=== PATIENT | male | born 1950 | race Caucasian/White ===

== ENCOUNTER → 2019-04-09 | Outpatient (CLI) | payer OTHER, SELFPAY ==
[2019-04-09 12:50] LABS: Anion Gap 2 (5-15); BUN 19 mg/dL (7-18); BUN/Creat Ratio 18.8 RATIO (10-20); Calcium,Total 9.4 mg/dL (8.5-10.1); Chloride 106 mmol/L (98-107); Cholesterol 136 mg/dL (200); Creatinine, Serum 1.01 mg/dL (0.70-1.30); EST Glomerular Filtration Rate 78 mL/min (>60); Est Glom Filt Rate - Afr Amer 95 mL/min (>60); Glucose 99 mg/dL (74-106); High Density Lipoprotein 64 mg/dL; Potassium 4.8 mmol/L (3.5-5.1); Sodium Level 140 mmol/L (136-145); Uric Acid 7.5 mg/dL (3.5-7.2)
[2019-04-09 13:19] LABS: Microalbumin,Random Urine 8.8 mg/L (NO RANGE EST.); Microalbumin:Creatinine Ratio 4.8 mg/g CRE (<30 mg/g CRE)
== END | disposition home or self-care (01) ==
LOC: MFPLAB 10:04
PROVIDERS: Family Provider Family Medicine; PCP Family Medicine; Referring Provider Family Medicine; Visit Provider Family Medicine
DX: I10 Essential (primary) hypertension (principal); M10.9 Gout, unspecified
CPT/HCPCS: 36415; 80048; 82043; 82465; 82570; 83718; 84550

== ENCOUNTER → 2024-02-04 | Outpatient (CLI) | payer MEDICARE, SELFPAY ==
[2024-02-04 12:19] LABS: Hematocrit 48.2 % (40-54); Hemoglobin 16.3 g/dL (13.0-16.5); Mean Corp Hgb Conc 33.8 g/dL (32-36); Mean Corpuscular Hgb 31.6 pg (27.0-32.0); Mean Corpuscular Volume 93.4 fL (80-94); POSITIVE COUNT YES; RBC Distribution Width CV 12.3 % (11.6-14.6); RBC Distribution Width SD 42.6 fl (35.1-43.9); Red Blood Count 5.16 M/mm3 (4.6-6.2); White Blood Count 6.6 K/mm3 (4.4-11.0)
[2024-02-04 12:46] LABS: ALB/GLOB Ratio 0.8 RATIO (0.9-2.4); AST(SGOT) 23 U/L (15-37); Alanine Aminotransfer ALT/SGPT 28 U/L (16-61); Albumin, Serum 3.6 g/dL (3.2-5.0); Alkaline Phosphatase 83 U/L (45-117); Anion Gap 7 (5-15); BUN 14 mg/dL (7-18); BUN/Creat Ratio 15.9 RATIO (10-20); Calcium,Total 9.2 mg/dL (8.5-10.1); Chloride 108 mmol/L (98-107); Creatinine, Serum 0.88 mg/dL (0.70-1.30); EST Glomerular Filtration Rate 90 mL/min (>60); Est Glom Filt Rate - Afr Amer 109 mL/min (>60); Globulin 4.6 g/dL (2.2-4.2); Glucose 100 mg/dL (74-106); Potassium 4.2 mmol/L (3.5-5.1); Protein, Total 8.2 g/dL (6.4-8.2); Sodium Level 139 mmol/L (136-145); Uric Acid 7.2 mg/dL (3.5-7.2)
[2024-02-04 12:55] LABS: Scan Indicated on CBC? Y/N YES- FLAGS NOTED
[2024-02-04 12:56] LABS: Differential Comment SCANNED
[2024-02-05 13:08] LABS: ANTINUCLEAR ANTIBODIES DIRECT Negative (Negative)
[2024-02-05 15:09] LABS: Lyme Scn Total Ab w/Rflx Negative (Negative); PROEL- Albumin 3.8 g/dL (2.9-4.4); PROEL- Alpha-1 Globulin 0.3 g/dL (0.0-0.4); PROEL- Alpha-2 Globulin 0.6 g/dL (0.4-1.0); PROEL- Globulin, Total 3.9 g/dL (2.2-3.9); PROEL- TOTAL PROTEIN 7.7 g/dL (6.0-8.5); PROEL-M-Spike Not Observed g/dL (Not Observed)
== END | disposition home or self-care (01) ==
LOC: MFPLAB 09:42
PROVIDERS: PCP Family Medicine; Visit Provider Family Medicine
DX: I10 Essential (primary) hypertension (principal); M25.50 Pain in unspecified joint; M10.9 Gout, unspecified
CPT/HCPCS: 36415; 80053; 84165; 84550; 85027; 86038; 86618

== ENCOUNTER → 2024-11-04 | Outpatient (CLI) | payer MEDICARE, SELFPAY ==
--- NOTE | 2024-11-04 09:36 | RAD_ITS ---
EXAM: XR Chest, 2 Views CLINICAL INDICATION: WHEEZING TECHNIQUE: Frontal and lateral views of the chest. COMPARISON: No relevant prior studies available. FINDINGS: LUNGS AND PLEURAL SPACES: Unremarkable. No consolidation. No pneumothorax. HEART: Unremarkable. No cardiomegaly. MEDIASTINUM: Unremarkable. Normal mediastinal contour. BONES/JOINTS: Unremarkable. No acute fracture. RAD/Chest PA and Lateral IMPRESSION: No acute cardiopulmonary process. Reading Location[id number]
[2024-11-04 12:26] LABS: Absolute Lymphocyte Count 3.22 X10^3/uL (0.83-4.51); Absolute Neutrophil Count 1.8 X10^3/uL (2.0-7.7); Basophil# 0.08 X10^3/uL; Basophil% 1.4 % (0-1); Eosinophils% 3.5 % (0-5); Hemoglobin 16.1 g/dL (13.0-16.5); Lymphocyte # 3.22 X10^3/ul (0.83-4.51); Lymphocyte % 55.7 % (19-41); Mean Corp Hgb Conc 35.8 g/dL (32-36); Mean Corpuscular Hgb 35.2 pg (27.0-32.0); Mean Corpuscular Volume 98.5 fL (80-94); Mean Platelet Vol. 10.8 fl (6.2-12.0); Monocyte# 0.52 X10^3/uL; NRBC Flagged by Analyzer 0 % (0-5); Neutrophil # 1.75 X10^3/uL (2.7-7.7); Neutrophil % 30.2 % (47-70); Platelet Count 141 K/mm3 (150-450); RBC Distribution Width CV 12.9 % (11.6-14.6); RBC Distribution Width SD 46.8 fl (35.1-43.9); Red Blood Count 4.57 M/mm3 (4.6-6.2); White Blood Count 5.8 K/mm3 (4.4-11.0)
[2024-11-04 12:49] LABS: ALB/GLOB Ratio 1.1 RATIO (0.9-2.4); AST(SGOT) 39 U/L (<=37); Alanine Aminotransfer ALT/SGPT 38 U/L (<=46); Albumin, Serum 4.3 g/dL (3.4-4.8); Alkaline Phosphatase 86 U/L (40-129); Anion Gap 12 (5-15); BUN 13 mg/dL (4-19); BUN/Creat Ratio 13.5 RATIO (10-20); Calcium,Total 9.4 mg/dL (7.6-11.0); Carbon Dioxide 26.5 mmol/L (21.0-32.0); Chloride 103 mmol/L (98-108); Cholesterol 150 mg/dL (<=200); Creatinine, Serum 0.96 mg/dL (0.70-1.20); EST Glomerular Filtration Rate 84 (>60); Globulin 3.8 g/dL (2.2-4.2); Glucose 98 mg/dL (70-99); High Density Lipoprotein 66 mg/dL; Low Density Lipoprotein Calc. 59 mg/dL; Potassium 4.4 mmol/L (3.3-5.1); Sodium Level 142 mmol/L (133-145); Total Bilirubin 0.68 mg/dL (0.00-1.30); Triglycerides 126 mg/dL; Uric Acid 6.1 mg/dL (3.5-7.2); Very Low Density Lipoprotein 25 mg/dL (5-40); cholesterol:hdl ratio screen 2.27
[2024-11-04 13:05] LABS: Microalbumin,Random Urine < 12.0 mg/L (NO RANGE EST.); Microalbumin:Creatinine Ratio UNABLE TO CALCULATE mg/g CRE
== END | disposition home or self-care (01) ==
LOC: MTLAB 09:34
PROVIDERS: PCP Family Medicine; Referring Provider Family Medicine; Visit Provider Family Medicine
DX: I10 Essential (primary) hypertension (principal); M10.9 Gout, unspecified; R06.2 Wheezing
CPT/HCPCS: 36415; 71046; 80053; 80061; 82043; 82570; 84550; 85025

== ENCOUNTER → 2025-06-30 | Outpatient (CLI) | payer MEDICARE, SELFPAY ==
--- OUTSIDE RECORDS SUMMARY | 2025-06-30 12:20 | XMS RPT_ITS | CCD ---
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 4.3 g/dL 3.4-4.8 [facility] Serum or plasma albumin/glob ulin mass ratioOrdered By: Berkley Schuster on 11-04-2024 Albumin/Globulin [Mass ratio] 1.1 {ratio} 0.9-2.4 [facility] Serum or plasma alkaline antonina sphatase measurementOrdered By: Berkley Schuster on 11-04-2024 ALP [Catalytic activity/Vol] 86 U/L 40-129 [facility] Serum or plasma calcium kash urement (mass/volume)Ordered By: Berkley Schuster on 11-04-2024 Calcium [Mass/Vol] 9.4 mg/dL 7.6-11.0 [facility] Serum or plasma cholesterol in HDL measurement (mass/volume)Ordered By: Berkley Schuster on 11-04-2024 Cholesterol in HDL [Mass/Vol] 66 mg/dL >40 [facility] Comment on above: National Cholesterol Education Program (NCEP) guidelines:<40 mg/dL: Low HDL-cholesterol (major risk factor for CHD)>= 60 mg/dL: High HDL-cholesterol (negative risk factor for CHD)HDL-cholesterol is affected by a number of factors, e.g. smoking, exercise, hormones, sex and age. Serum or plasma cholesterol measurement (mass/volume)Ordered By: Berkley Schuster on 11-04-2024 Cholesterol [Mass/Vol] 150 mg/dL <201 [facility] Comment on above: Cholesterol level, D esirable <200 mg/dLBorderline high cholesterol 200-239 mg/dLHigh cholesterol >=240 mg/dLRecommendations of the NCEP Adult Treatment Panel for the following risk-cutoff thresholds for the [place] population. Serum or plasma urea nitroge n measurement (mass/volume)Ordered By: Berkley Schuster on 11-04-2024 Urea nitrogen [Mass/Vol] 13 mg/dL 4-19 [facility] Serum or plasma uric acid me asurement (mass/volume)Ordered By: Berkley Schuster on 11-04-2024 Urate [Mass/Vol] 6.1 mg/dL 3.5-7.2 [facility] Comment on above: The drugs N-Acetylcy steine and Metamizole may falsely depress this assay. Sodium levelOrdered By: Berkley Schuster on 11-04-2024 Sodium [Moles/Vol] 142 mmol/L 133-145 [facility] Total proteinOrdered By: Nelida Schuster on 11-04-2024 Protein [Mass/Vol] 8.0 g/dL 5.9-8.4 [facility] Triglycerides measurementOrd ered By: Berkley Schuster on 11-04-2024 Triglyceride [Mass/Vol] 126 mg/dL <199 [facility] Comment on above: The drugs N-Acetylcy steine and Metamizole may falsely depress this assay. Normal range: <150 mg/dLBorderline High: 150-199 mg/dLHigh: 200-499 mg/dLVery High: >500 mg/dL Uric Acidon 11-04-2024 URIC 6.1 mg/dL Normal 3.5-7.2 [facility] Comment on above: Result Comment: The drugs N-Acetylcysteine and Metamizole may falsely depress this assay. Performed By: #### L 500.4050, L502.0250, L500.4100, L501.1400, L100.0100 #### [facility] [address] [place], [address] White blood cell (WBC) count Ordered By: Berkley Schuster on 11-04-2024 WBC (Bld) [#/Vol] 5.8 10*3/uL 4.4-11.0 [facility] EMERGENCY REPORTon [phone] 9 EMERGENCY REPORT [facility] EM[facility]OM REPORT NAME ACCOUNT SEX AGE ADMIT DISCHARGE PT MED. RECORD# NUMBER DATE DATE TYPE MARY LOMAX [id number] Kathe 68 02/06/19 3 [id number] ROOM: ER DATE OF : 1950 DICTATING PHYSICIAN: Trevin Upton CHIEF COMPLAINT: Chest pain. HISTORY OF PRESENT ILLNESS: The patient states that he awoke with left-sided chest pain this morning. Prior to that and recently, he has generally felt well. He describes this as a sharp pain that is worse with breathing or coughing. He does not feel significantly short of breath with it. He did have some diaphoresis as well. He states that he has not had pain like this in the past. It seems to be diffusely across his left chest radiating slightly into his shoulder and back area, as well as left upper abdomen. He has minimal nausea. No vomiting. PAST MEDICAL HISTORY: Significant for hypertension. He does not have any known heart disease. No history of diabetes. No recent injury or trauma. PAST SURGICAL HISTORY: He has not had previous surgery. MEDICATIONS: He is on medications as noted on the med rec list. ALLERGIES: He does not have any known allergies. SOCIAL HISTORY: The patient lives at home. He does not smoke. He drinks alcohol occasionally. REVIEW OF SYSTEMS: As above. No pain or swelling to his extremities. No fever. No cough, congestion. He has not had any recent cardiac evaluation. No underlying bowel or bladder symptoms. PHYSICAL EXAMINATION: This is a 68-year-old male alert, appropriate, appears mildly uncomfortable, but in no apparent distress. Skin is pale, pink, warm, and dry. HEENT: All within normal limits. His neck is supple without JVD. Lungs are clear bilaterally, slightly diminished, but no crackles, wheezes, or respiratory distress. He does not really have significant chest wall tenderness. Cardiac exam is regular rhythm without any ectopy or murmurs. Abdomen is soft, very minimal tenderness to the left upper quadrant. No guarding or rebound. He moves all extremities appropriately without any focal weaknesses. No cyanosis, clubbing, or edema. Good peripheral pulses. Good capillary refill. No neurologic deficits. Vital signs: Temperature 97.5, pulse 88, respirations 16, blood pressure 186/29, and O2 saturation is 97%. Page 1 of 2 [facility] Emergency Room Report DIAGNOSTIC DATA: He did have an EKG on arrival which showed normal sinus rhythm without any acute ST or T changes. Laboratories returned showing a CBC that was normal. BNP was normal. Troponin was less than 0.01. CMP: Glucose 158, otherwise normal. Chest CT did return negative for PE. There was some minimal bibasilar atelectasis, but no other problems. EMERGENCY DEPARTMENT COURSE AND TREATMENT: IV of normal saline was placed. I did give him some Toradol IV initially, which really did not do much for his pain. I proceeded to go directly to chest CT to rule out PE because of his symptoms, and check other laboratories in the meantime. His blood pressure continued to range fairly high, and he had ongoing left-sided pain. DIAGNOSIS: Chest pain, uncertain cause. PLAN/DISPOSITION: Because of his ongoing pain and elevated blood pressure, I felt that admission is warranted. He was given some aspirin and Nitro paste. I did give him a small amount of morphine and some Lopressor IV. Dictated By: Trevin Upton MD 02/06/19 13:58 JOB #: [id number] Transcribed By: jem 02/06/19 14:05 Electronically signed by: TAISHA Upton M.D. 02/16/19 07:43 Page 2 of 2 [facility] Emergency Room Report Normal [facility] CV ECHO [facility] 9 CV ECHO [place] [address] Patient: MARY LOMAX Phone#: : 1950 Age: 68 Gender: M Pt. Type: Out Account: [id number] Location: 010 Ordering: NOVEMBER Ml ESCALANTE Exam Date: 02/07/2019/6:38 Family Phys: BERKLEY SCHUSTER Charge Code: [id number] Physician: Crane Order #: [id number] DLP Dose#: PROCEDURE: ECHOCARDIOGRAM WITH DOPPLER AND COLOR FLOW HISTORY: Hypertension INDICATIONS: Chest pain TECHNIQUE: A 2-D ultrasound, color spectral Doppler and M-mode evaluation of the heart and great vessels. PATIENT MEASUREMENTS: Height (in.): 69 BSA: 2.0 Weight (lbs.): 175 BP: 174/90 Director [facility]: STANISLAV M MODE 2D MEASUREMENTS AND CALCULATIONS: LVIDd: 5.18 cm LVIDs: 2.82 cm IVSd: 1.42 cm LVPWd: 1.24 cm LVOT diam: FS: 45.49 % Ao Root diam: 2.98 cm LA diam: 3.71 cm LA Volume Index: RA A4 Area: RVDd: 2.03 cm TAPSE: DOPPLER MEASUREMENTS AND CALCULATIONS MITRAL MV E MAX carlos: MV V2 max: 492.18 cm/s MV max P.91 mm[Hg] MV V2 mean: 382.25 cm/s MV mean P.17 mm[Hg] Continued Report - Page 2 of 3 Patient: MARY LOMAX Phone#: : 1950 Age: 68 Gender: M Pt. Type: Out Account: [id number] Location: [facility] Ordering: NESSA ESCALANTE Exam Date: 02/07/2019/6:38 Family Phys: BERKLEY SCHUSTER Charge Code: [id number] Physician: Crane Order #: [id number] DLP Dose#: MV V2 VTI: 203.73 cm MV PHT: Lat Peak E' Carlos Septal Peak E' CARLOS AORTIC Ao V2 max: 106.37 cm/s Ao max P.53 mm[Hg] Ao V2 mean: AI max carlos 357.69 cm/s AI max PG 51.20 mm[Hg] AI dec [place] 158.06 cm/s2 AI PHT 657.27 ms LV V1 Max 103.97 cm/s LV V1 Max PG 4.32 mm[Hg] LV V1 Mean PG PULMONIC PA V2 Max 100.94 cm/s PA Max PG 4.08 mm[Hg] TRICUSPID TR Max Carlos 243.47 cm/s TR max PG 23.72 mm[Hg] RVSP 2D/M-MODE AND COLOR FLOW LEFT VENTRICLE: Normal in size. Normal wall thickness. Normal systolic function. Ejection fraction is 60- 65%. Normal diastolic function. WALL MOTION: 1 - Basal anterior: Normal. 7 - Mid anterior: Normal. 13 - Apical anterior: Normal. 2 - Basal anteroseptal: Normal. 8 - Mid anteroseptal: Normal. 14 - Apical septal: Normal. 3 - Basal inferoseptal: Normal. 9 - Mid inferoseptal: Normal. 15 - Apical inferior: Normal. 4 - Basal inferior: Normal. 10-Mid inferior: Normal. 16 - Apical lateral: Normal. 5 - Basal inferolateral: Normal. 11-Mid inferolateral: Normal. 6 - Basal anterolateral: Normal. 12-Mid anterolateral: Normal. RIGHT VENTRICLE: Normal size and systolic function LEFT ATRIUM: Normal in size. No masses or thrombi seen RIGHT ATRIUM: Normal in size. No masses or thrombi seen ATRIAL SEPTUM: Appears intact. MITRAL VALVE: Structurally normal with good excursion. No prolapse or stenosis. Mild mitral regurgitation. TRICUSPID VALVE: Structurally normal with good excursion. Mild tricuspid regurgitation. Normal estimated pulmonary pressures. Continued Report - Page 3 of 3 Patient: MARY LOMAX Phone#: : 1950 Age: 68 Gender: M Pt. Type: Out Account: [id number] Location: [facility] Ordering: NESSA ESCALANTE Exam Date: 02/07/2019/6:38 Family Phys: BERKLEY SCHUSTER Charge Code: [id number] Physician: Crane Order #: [id number] DLP Dose#: AORTIC VALVE: Trileaflet. No stenosis. Mild aortic insufficiency. PULMONIC VALVE: Not well seen. No stenosis or insufficiency AORTIC ROOT: Normal in size AORTIC ARCH: Appears normal DESC THORACIC AORTA: Not well seen IVC/SVC: The inferior vena cava is normal in size PULMONARY ARTERY: Appears normal PULMONARY VEINS: Not well seen PERICARDIUM: Normal. No effusion PLEURA: No effusion CONCLUSION: 1. Normal left ventricular size, systolic and diastolic function. Ejection fraction is 60-65%. 2. No chamber dilatation. 3. Mild aortic insufficiency. 4. Mild mitral and tricuspid regurgitation. 5. Normal estimated pulmonary pressures and normal estimated central venous pressure. Dictated by: David Flores MD on 02/07/2019 at 8:57 Approved by: Dvaid Flores MD on 02/07/2019 at 8:57 Normal [facility] NM CARDIAC STRESS (SPECT) W/ TREADMILLon 02-07-2019 NM CARDIAC STRESS (SPECT) W/TREADMILL [place] [address] Patient: MARY LOMAX Phone#: : 1950 Age: 68 Gender: M Pt. Type: Out Account: [id number] Location: 010 Ordering: [facility] Exam Date: 02/07/2019/5:35 Family Phys: BERKLEY SCHUSTER Charge Code: [id number] Physician: Crane Order #: [id number] DLP Dose#: PROCEDURE: CARDIAC STRESS SPECT WITH TREADMILL EXERCISE HISTORY: Chest pain INDICATIONS: Chest pain TECHNIQUE: Resting and stress SPECT images acquired in the horizontal long, vertical long and short axis views. Protocol: Miguel Duration: 07:30 minutes Peak Heart Rate: 150 bpm, which is 97% of maximum predicted heart rate. Workload: 9.20 METs REST DOSE: 11.4 mCi Sestamibi. STRESS DOSE: 33.3 mCi Sestamibi. INTERPRETATION: Resting Images: There is a decrease in the uptake of activity in the inferior and inferoseptal gamble. This extends to the apex. There otherwise is relatively homogenous uptake of activity in other areas of the myocardium. Stress Images: There is a similar distribution of uptake of activity when compared to rest images. No significant reversible defects. Gated SPECT/wall motion: The left ventricle is normal in size. The ejection fraction is normal by this method at 53% with normal wall motion. CONCLUSION: 1. No evidence of significant inducible ischemia or prior myocardial infarction. 2. Normal ejection fraction by this method at 53% with normal wall motion. 3. Diaphragmatic attenuation artifact noted. Dictated by: David Flores MD on 02/07/2019 at 10:11 Continued Report - Page 2 of 2 Patient: MARY LOMAX Phone#: : 1950 Age: 68 Gender: M Pt. Type: Out Account: [id number] Location: 010 Ordering: [facility] Exam Date: 02/07/2019/5:35 Family Phys: BERKLEY SCHUSTER Charge Code: [id number] Physician: Crane Order #: [id number] DLP Dose#: Approved by: David Flores MD on 02/07/2019 at 10:11 Normal [facility] NM EXERCISE STRESS TEST (W/C ARDIAC STUDYon 07-05-2019 NM EXERCISE STRESS TEST (W/CARDIAC STUDY [place] [address] Patient: MARY LOMAX Phone#: : 1950 Age: 68 Gender: M Pt. Type: Out Account: [id number] Location: 010 Ordering: [facility] Exam Date: 02/07/2019/6:47 Family Phys: BERKLEY SCHUSTER Charge Code: [id number] Physician: Crane Order #: [id number] DLP Dose#: PROCEDURE: ELECTROCARDIOGRAM STRESS TEST HISTORY: Hypertension INDICATIONS: Chest pain TECHNIQUE: Electrocardiogram stress test was performed using the protocol listed below. STRESS RESULTS: Protocol: Miguel Duration: 7:30minutes Reason for termination: fatigue Resting Heart Rate: 61 bpm. Resting Blood Pressure: 164/88 mmHg Peak Heart Rate: 150 which is 97% of maximum predicted heart rate Peak Blood Pressure: 184/95 occurred 4:00 into recovery Workload: 9.20 METs. Symptoms with stress: No chest pain or discomfort EKG Data EKG at Baseline: Sinus rhythm, rate 61. First degree AV block. Nonspecific ST-T changes EKG with Stress: No electrocardiographic changes diagnostic for ischemia CONCLUSION: 1. Negative electrocardiographic portion of the stress nuclear study for ischemia. 2. No chest pain or discomfort during the protocol. 3. Normal exercise capacity for age. 4. Normal blood pressure response to exercise. 5. Nuclear images will be interpreted and dictated separately Dictated by: David Flores MD on 02/07/2019 at 9:18 Continued Report - Page 2 of 2 Patient: MARY LOMAX Phone#: : 1950 Age: 68 Gender: M Pt. Type: Out Account: [id number] Location: 010 Ordering: [facility] Exam Date: 02/07/2019/6:47 Family Phys: BERKLEY SCHUSTER Charge Code: [id number] Physician: Crane Order #: [id number] DLP Dose#: Approved by: David Flores MD on 02/07/2019 at 9:18 Normal [facility] TROPONINon 07-05-2019 Troponin I.cardiac [Mass/Vol] 0.01 ng/mL Normal 0.00 - 0.05 [facility] Comment on above: Result Comment: Elev ated troponin (above the 99th percentile) usually indicates myocardial ischemia. Results must be interpreted within the clinical setting. 1.Non-ischemic pathology can also cause elevated troponin levels (e.g., acute pulmonary embolism, myocarditis, pericarditis, heart failure, intracranial injury, rhabdomyolisis, sepsis, shock and renal insufficiency). 2.Approximately 1% of healthy adults have elevated troponin levels. 3.Analytical false positive results rarely occur(due to multiple interferences such as heterophile antibodies). Performed By: #### 2 01968 #### [address] [address] BNP (B-TYPE NATRIURETIC PEPT SOTERO)on 02-06-2019 Natriuretic peptide B (Bld) [Mass/Vol] 12 pg/mL Normal 1 - 100 [facility] Comment on above: Performed By: #### 2 95842 #### [facility],[address] [place] [address] CBC + DIFFon 02-06-2019 Basophils (Bld) [#/Vol] 0.00 x10EE3/UL Normal 0.00 - 0 .10 [facility] Comment on above: Performed By: #### 2 65720 #### [address] [address] Basophils/100 WBC (Bld) 0.5 % Normal 0.0 - 2.0 [facility] Comment on above: Performed By: #### 2 33518 #### [address] [address] CBC + DIFF Normal [facility] Comment on above: Result Comment: CBC- COMPLETE BLOOD COUNT Performed By: #### 2 16133 #### [facility],[address] [place] [address] Eosinophils (Bld) [#/Vol] 0.10 x10EE3/UL Normal 0.00 - 0.50 [facility] Comment on above: Performed By: #### 2 55849 #### [facility],[address] [place] [address] Eosinophils/100 WBC (Bld) 1.7 % Normal 0.0 - 7.0 [facility] Comment on above: Performed By: #### 2 82205 #### [facility],[address] [place], [place] [id number] Erythrocyte distribution width (RBC) [Ratio] 12.4 % Normal 12.0 - 15.6 [facility] Comment on above: Performed By: #### 2 00048 #### [facility],[address] [place], [place] [id number] Hematocrit (Bld) [Volume fraction] 42.5 % Normal 40.0 - 52.0 [facility] Comment on above: Performed By: #### 2 48527 #### [facility],[address] [place], [place] [id number] Hemoglobin (Bld) [Mass/Vol] 14.9 g/dL Normal 13.0 - 17.5 [facility] Comment on above: Performed By: #### 2 15557 #### [facility],[address] [place] [address] Lymphocytes (Bld) [#/Vol] 1.30 x10EE3/UL Normal 0.80 - 2.80 [facility] Comment on above: Performed By: #### 2 92031 #### [facility],[address] [place] [address] Lymphocytes/100 WBC (Bld) 18.8 % Low 20.0 - 45.0 [facility] Comment on above: Performed By: #### 2 08879 #### [facility],[address] [place] [address] MANUAL DIFF N/A Normal [facility] Comment on above: Performed By: #### 2 57534 #### [facility],[address] [place] [address] 11361 MCH (RBC) [Entitic mass] 33 pg Normal 27 - 33 [facility] Comment on above: Performed By: #### 2 66815 #### [facility],[address] [place] [address] MCHC (RBC) [Mass/Vol] 35 X10 3 Normal 32 - 36 [facility] Comment on above: Performed By: #### 2 87771 #### [facility],[address] [place] [address] 36573 MCV (RBC) [Entitic vol] 94 fL Normal 81 - 98 [facility] Comment on above: Performed By: #### 2 04642 #### [facility],[address] [place] [address] Monocytes (Bld) [#/Vol] 0.40 x10EE3/UL Normal 0.20 - 1 .00 [facility] Comment on above: Performed By: #### 2 41844 #### [facility],[address] [place] [address] MONOS % 5.6 % Normal 0.0 - 10.0 [facility] Comment on above: Performed By: #### 2 41442 #### [facility],[address] [place] [address]791 Morphology Mikey (Bld) [Interp] N/A Normal [facility] Comment on above: Performed By: #### 2 64123 #### [facility],[address] [place] [address] Neutrophils (Bld) [#/Vol] 5.00 x10EE3/UL Normal 1.50 - 7.10 [facility] Comment on above: Performed By: #### 2 92075 #### [facility],[address] [place] [address] 31457 Neutrophils/100 WBC (Bld) 73.4 % Normal 46.0 - 76.0 [facility] Comment on above: Performed By: #### 2 54539 #### [facility],[address] [place] [address] Platelet mean volume (Bld) [Entitic vol] 6.9 fL Normal 6.4 - 10.5 [facility] Comment on above: Result Comment: AUTO MATED DIFFERENTIAL Performed By: #### 2 66248 #### [facility],[address] [place] [address] Platelets (Bld) [#/Vol] 242 x10EE3/UL Normal 150 - 450 [facility] Comment on above: Performed By: #### 2 59210 #### [facility],[address] [place] [address]67 RBC (Bld) [#/Vol] 4.50 x 10EE6/UL Normal 4.50 - 6.00 [facility] Comment on above: Performed By: #### 2 77276 #### [facility],[address] [place] [address]139 WBC (Bld) [#/Vol] 6.9 x 10EE3/UL Normal 4.5 - 10.8 [facility] Comment on above: Performed By: #### 2 95284 #### [facility],[address] [place] [address] CMP with eGFRon 02-06-2019 Age - Reported 68 years Normal [facility] Comment on above: Performed By: #### 2 59838 #### [facility],[address] [place] [address] 05953 Albumin [Mass/Vol] 4.3 g/dL Normal 3.4 - 4.8 [facility] Comment on above: Performed By: #### 2 73729 #### [facility],[address] [place] [address] Albumin/Globulin [Mass ratio] 1.3 {ratio} Normal 0.9 - 1.6 [facility] Comment on above: Performed By: #### 2 49158 #### [facility],[address] [place] [address] 01239 ALK PHOS 55 U/L Normal 38 - 126 [facility] Comment on above: Performed By: #### 2 55149 #### [facility],[address] [place] [address] 81862 ALT/SGPT 22 U/L Normal 10 - 40 [facility] Comment on above: Performed By: #### 2 92898 #### [facility],[address] [place] [address] 40003 Anion gap [Moles/Vol] 12 mmol/L Normal 10 - 20 [facility] Comment on above: Performed By: #### 2 64135 #### [facility],[address] [place] [address] 33183 AST/SGOT 22 U/L Normal 13 - 39 [facility] Comment on above: Performed By: #### 2 07873 #### [facility],[address] [place] [address] 875[address] B/C RATIO 14 ratio Normal 0 - 30 [facility] Comment on above: Performed By: #### 2 32938 #### [facility],[address] [place] [address] 38531 Bilirubin [Mass/Vol] 1.1 mg/dL Normal 0.0 - 1.5 [facility] Comment on above: Performed By: #### 2 58098 #### [facility],[address] [place] [address]270 Calcium [Mass/Vol] 9.8 mg/dL Normal 8.6 - 10.2 [facility] Comment on above: Performed By: #### 2 00433 #### [facility],[address] [place] [address]33 Chloride [Moles/Vol] 101 mmol/L Normal 98 - 107 [facility] Comment on above: Performed By: #### 2 00555 #### [facility],[address] [place] [address]36 CO2 [Moles/Vol] 30.4 mmol/L Normal 21.0 - 31.0 [facility] Comment on above: Performed By: #### 2 24708 #### [facility],[address] [place] [address] 40905 Creatinine [Mass/Vol] 0.9 mg/dL Normal 0.7 - 1.3 [facility] Comment on above: Performed By: #### 2 53131 #### [facility],[address] [place], [place] [id number] GFR/1.73 sq M predicted among non-blacks MDRD (S/P/Bld) [Vol rate/Area] mL/min/{1.73_m2} Normal 60 - 999 [facility] Comment on above: Performed By: #### 2 71351 #### [facility],[address] [place] [address] Result Comment: ACCO RDING TO THE NATIONAL KIDNEY DISEASE EDUCATION PROGRAM(NKDE), A NORMAL eGFR IS A VALUE GREATER THAN OR EQUAL TO 60 ML/MIN/1.73 SQ METERS. CHRONIC KIDNEY DISEASE: <60mL/MIN/1.73 SQ METERS KIDNEY FAILURE: <15mL/MIN/1.73 SQ METERS THIS TEST SHOULD ONLY BE USED FOR PATIENTS 18 YEARS OF AGE AND OLDER. GFR/1.73 sq M predicted among non-blacks MDRD (S/P/Bld) [Vol rate/Area] Normal [facility] Comment on above: Result Comment: COMP REHENSIVE METABOLIC PANEL Performed By: #### 2 94764 #### [facility],[address] [place] [address] Globulin (S) [Mass/Vol] 3.4 g/dL Normal 1.5 - 3.8 [facility] Comment on above: Performed By: #### 2 40991 #### [facility],[address] [place] [address] Glucose [Mass/Vol] 158 mg/dL High 74 - 106 [facility] Comment on above: Performed By: #### 2 39635 #### [facility],[address] [place] [address] Potassium [Moles/Vol] 4.1 mmol/L Normal 3.5 - 5.1 [facility] Comment on above: Performed By: #### 2 44687 #### [facility],[address] [place] [address] Protein [Mass/Vol] 7.7 g/dL Normal 6.4 - 8.3 [facility] Comment on above: Performed By: #### 2 39657 #### [facility],[address] [place] [address] Sodium [Moles/Vol] 139 mmol/L Normal 136 - 145 [facility] Comment on above: Performed By: #### 2 96873 #### [facility],[address] [place] [address] Urea nitrogen [Mass/Vol] 13 mg/dL Normal 6 - 20 [facility] Comment on above: Performed By: #### 2 88909 #### [facility],[address] [place] [address] CHEST (PE PROTOCOL)on CT CHEST (PE PROTOCOL) [place] [address] Patient: MARY LOMAX Phone#: : 1950 Age: 68 Gender: M Pt. Type: ER Account: [id number] Location: [facility] Ordering: TREVIN UPTON Exam Date: 02/06/2019/12:16 Family Phys: Charge Code: 310828 Physician: Crane Order #: [id number] DLP Dose#: 2.20 mGy PROCEDURE: CT CHEST WITH CONTRAST FOR PE COMPARISON: None. INDICATIONS: Chest Pain TECHNIQUE: After obtaining the patient's consent, CT images were obtained with non-ionic intravenous contrast material. Multi-planar images were created to optimize visualization of vascular anatomy with MPR/MIPS and 3D imaging. All CT scans at this facility use dose modulation, iterative reconstruction, and/or weight based dosing when appropriate to reduce radiation dose to as low as reasonably achievable. IV CONTRAST: Omnipaque 350,78ml TOTAL DOSE: 2.2 CTDIvol(mGy) FINDINGS: VASCULATURE: Normal. No visible pulmonary arterial thrombus or attenuation. AORTA: Normal. No aneurysm or dissection. LUNGS: Normal. No visible pulmonary disease. AJ: Normal. No mass or adenopathy. MEDIASTINUM: Normal. No mass or adenopathy. CARDIAC: Normal. No enlargement, pericardial thickening, or significant calcification. PLEURA: Normal. No mass or effusion. CHEST WALL: Normal. No mass or axillary adenopathy. LIMITED ABDOMEN: Normal. Limited images of the upper abdomen are unremarkable. BONES: Normal. No bony lesion or fracture. OTHER: Negative. CONCLUSION: No acute disease. There is no evidence of pulmonary embolus. Continued Report - Page 2 of 2 Patient: MARY LOMAX Phone#: : 1950 Age: 68 Gender: M Pt. Type: ER Account: [id number] Location: [facility] Ordering: TREVIN UPTON Exam Date: 02/06/2019/12:16 Family Phys: Charge Code: 997290 Physician: Crane Order #: [id number] DLP Dose#: 2.20 mGy Dictated by: Clari Masters MD on 02/06/2019 at 16:14 Approved by: Clari Masters MD on 02/06/2019 at 16:14 Normal [facility] D-DIMER, QUANTITATIVEon 07- D-DIMER QUANT 204 ng/ml Normal 0 - 230 [facility] Comment on above: Performed By: #### 2 22248 #### [facility],[address] [place], [place] [address] D-DIMER, QUANTITATIVE Normal [facility] Comment on above: Result Comment: ROBERT T D-DIMER Performed By: #### 2 52125 #### [facility],[address] [place], [place] [address] TROPONINon 02-06-2019 Troponin I.cardiac [Mass/Vol] 0.01 ng/mL Normal 0.00 - 0.05 [facility] Comment on above: Result Comment: Elev ated troponin (above the 99th percentile) usually indicates myocardial ischemia. Results must be interpreted within the clinical setting. 1.Non-ischemic pathology can also cause elevated troponin levels (e.g., acute pulmonary embolism, myocarditis, pericarditis, heart failure, intracranial injury, rhabdomyolisis, sepsis, shock and renal insufficiency). 2.Approximately 1% of healthy adults have elevated troponin levels. 3.Analytical false positive results rarely occur(due to multiple interferences such as heterophile antibodies). Performed By: #### 2 19191 #### [place] [id number] Troponin I.cardiac [Mass/Vol] 0.01 ng/mL Normal 0.00 - 0.05 [facility] Comment on above: Result Comment: Elev ated troponin (above the 99th percentile) usually indicates myocardial ischemia. Results must be interpreted within the clinical setting. 1.Non-ischemic pathology can also cause elevated troponin levels (e.g., acute pulmonary embolism, myocarditis, pericarditis, heart failure, intracranial injury, rhabdomyolisis, sepsis, shock and renal insufficiency). 2.Approximately 1% of healthy adults have elevated troponin levels. 3.Analytical false positive results rarely occur(due to multiple interferences such as heterophile antibodies). Performed By: #### 2 97833 #### [facility],[address] [place], [place] [address] Troponin I.cardiac [Mass/Vol] ng/mL Normal 0.00 - 0.05 [facility] Comment on above: Result Comment: Elev ated troponin (above the 99th percentile) usually indicates myocardial ischemia. Results must be interpreted within the clinical setting. 1.Non-ischemic pathology can also cause elevated troponin levels (e.g., acute pulmonary embolism, myocarditis, pericarditis, heart failure, intracranial injury, rhabdomyolisis, sepsis, shock and renal insufficiency). 2.Approximately 1% of healthy adults have elevated troponin levels. 3.Analytical false positive results rarely occur(due to multiple interferences such as heterophile antibodies). Performed By: #### 2 95364 #### [facility],[address] [facility] [address] .Auto Diffon 11-26-2018 Ammonia mass conc (P) 0.70 10 3/mcL Normal 0.09-1.40 [facility] ([place]) Comment on above: Performed By: #### C BC, ADIFF, ANEU, PSA, TSH, CMP, GFR, BILAD, LIPID, A1C #### [address] [address] Basophils #/vol (Bld) 0.00 10 3/mcL Normal 0.00-0.27 [facility] ([place]) Comment on above: Performed By: #### C BC, ADIFF, ANEU, PSA, TSH, CMP, GFR, BILAD, LIPID, A1C #### [address] [address] Basophils/100 WBC (Bld) 0.8 % Normal 0.0-2.5 A [facility] ([place]) Comment on above: Performed By: #### C BC, ADIFF, ANEU, PSA, TSH, CMP, GFR, BILAD, LIPID, A1C #### [address] [address] Eosinophils #/vol (Bld) 0.20 10 3/mcL Normal 0.00-0.65 [facility] ([place]) Comment on above: Performed By: #### C BC, ADIFF, ANEU, PSA, TSH, CMP, GFR, BILAD, LIPID, A1C #### [address] [address] Eosinophils/100 WBC (Bld) 3.4 % Normal 0.0-6.0 [facility] ([place]) Comment on above: Performed By: #### C BC, ADIFF, ANEU, PSA, TSH, CMP, GFR, BILAD, LIPID, A1C #### [address] [address] Lymphocytes #/vol (Bld) 2.60 10 3/mcL Normal 0.90-4.32 [facility] ([place]) Comment on above: Performed By: #### C BC, ADIFF, ANEU, PSA, TSH, CMP, GFR, BILAD, LIPID, A1C #### [address] [address] Lymphocytes/100 WBC (Bld) 44.9 % High 20.0-40.0 [facility] ([place]) Comment on above: Performed By: #### C BC, ADIFF, ANEU, PSA, TSH, CMP, GFR, BILAD, LIPID, A1C #### [address] [address] Monocytes/100 WBC (Bld) 11.3 % Normal 2.0-13.0 A [facility] ([place]) Comment on above: Performed By: #### C BC, ADIFF, ANEU, PSA, TSH, CMP, GFR, BILAD, LIPID, A1C #### [address] [address] Neutrophils/100 WBC (Bld) 39.6 % Low 50.0-75.0 [facility] ([place] Comment on above: Performed By: #### C BC, ADIFF, ANEU, PSA, TSH, CMP, GFR, BILAD, LIPID, A1C #### [address] [address] .GFRon 11-26-2018 GFR >60 Normal [facility] ([place]) Comment on above: Result Comment: GFR Population mean for , Non- Americans Ages 20-29 = 116 mL/min/1.73 sq.m. Ages 30-39 = 107 mL/min/1.73 sq.m. Ages 40-49 = 99 mL/min/1.73 sq.m. Ages 50-59 = 93 mL/min/1.73 sq.m. Ages 60-69 = 85 mL/min/1.73 sq.m. Ages 70+ = 75 mL/min/1.73 sq.m. Chronic Kidney Disease: Less than 60 mL/min/1.73 square meters End Stage Renal Disease: Less than 15 mL/min/1.73 square meters Performed By: #### C BC, ADIFF, ANEU, PSA, TSH, CMP, GFR, BILAD, LIPID, A1C #### [address] [address] GFR Non- >60 Normal [facility] ([place]) Comment on above: Result Comment: GFR Population mean for , Non- Americans Ages 20-29 = 116 mL/min/1.73 sq.m. Ages 30-39 = 107 mL/min/1.73 sq.m. Ages 40-49 = 99 mL/min/1.73 sq.m. Ages 50-59 = 93 mL/min/1.73 sq.m. Ages 60-69 = 85 mL/min/1.73 sq.m. Ages 70+ = 75 mL/min/1.73 sq.m. Chronic Kidney Disease: Less than 60 mL/min/1.73 square meters End Stage Renal Disease: Less than 15 mL/min/1.73 square meters Performed By: #### C BC, ADIFF, ANEU, PSA, TSH, CMP, GFR, BILAD, LIPID, A1C #### [address] [address] .NEUABSon 11-26-2018 Neutrophils #/vol (Bld) 2.30 10 3/mcL Normal 2.25-8.10 [facility] ([place]) Comment on above: Performed By: #### C BC, ADIFF, ANEU, PSA, TSH, CMP, GFR, BILAD, LIPID, A1C #### [place] [address] A1Con 11-26-2018 Hemoglobin A1c/Hemoglobin.total mass fraction (Bld) 5.7 % Normal 4.0-6.0 [facility] ([place]) Comment on above: Order Comment: [facility] Location- [employer] Performed By: #### C BC, ADIFF, ANEU, PSA, TSH, CMP, GFR, BILAD, LIPID, A1C #### [address] [address] BILADon 11-26-2018 Bili Direct 0.3 mg/dL Normal 0.0-0.4 [facility] ([place]) Comment on above: Order Comment: [facility] Location- [employer] Performed By: #### C BC, ADIFF, ANEU, PSA, TSH, CMP, GFR, BILAD, LIPID, A1C #### [place] [id number] CBCon 11-26-2018 Erythrocyte distribution width Ratio (RBC) 12.7 % Normal 11.5-15.5 [facility] ([place]) Comment on above: Order Comment: [facility] Location- [employer] Performed By: #### C BC, ADIFF, ANEU, PSA, TSH, CMP, GFR, BILAD, LIPID, A1C #### [place] [address] Hematocrit Volume Fraction (Bld) 41.9 % Normal 40.0-52.0 [facility] ([place]) Comment on above: Order Comment: [facility] Location- [employer] Performed By: #### C BC, ADIFF, ANEU, PSA, TSH, CMP, GFR, BILAD, LIPID, A1C #### [place] [address] Hemoglobin mass conc (Bld) 14.5 G/dL Normal 13.0-17.5 [facility] ([place]) Comment on above: Order Comment: [facility] Location- [employer] Performed By: #### C BC, ADIFF, ANEU, PSA, TSH, CMP, GFR, BILAD, LIPID, A1C #### [place] [address] MCH Entitic mass (RBC) 33.0 pg Normal 27.0-33.0 [facility] ([place]) Comment on above: Order Comment: [facility] Location- [employer] Performed By: #### C BC, ADIFF, ANEU, PSA, TSH, CMP, GFR, BILAD, LIPID, A1C #### [place] [address] MCHC mass conc (RBC) 34.7 G/dL Normal 32.0-36.0 [facility] ([place]) Comment on above: Order Comment: [facility] Location- [employer] Performed By: #### C BC, ADIFF, ANEU, PSA, TSH, CMP, GFR, BILAD, LIPID, A1C #### [place] [address] MCV Entitic volume (RBC) 95.1 fL Normal 81.0-100.0 [facility] ([place]) Comment on above: Order Comment: [facility] Location- [employer] Performed By: #### C BC, ADIFF, ANEU, PSA, TSH, CMP, GFR, BILAD, LIPID, A1C #### [place] [address] Platelet mean volume Entitic volume (Bld) 7.8 fL Normal 6.4-10.5 [facility] ([place]) Comment on above: Order Comment: [facility] Location- [employer] Performed By: #### C BC, ADIFF, ANEU, PSA, TSH, CMP, GFR, BILAD, LIPID, A1C #### [place] [address] Platelets #/vol (Bld) 283 10 3/mcL Normal 150-450 A [facility] ([place]) Comment on above: Order Comment: [facility] Location- [employer] Performed By: #### C BC, ADIFF, ANEU, PSA, TSH, CMP, GFR, BILAD, LIPID, A1C #### [place] [address] RBC #/vol (Bld) 4.41 10 6/mcL Low 4.50-6.00 [facility] ([place]) Comment on above: Order Comment: [facility] Location- [employer] Performed By: #### C BC, ADIFF, ANEU, PSA, TSH, CMP, GFR, BILAD, LIPID, A1C #### [place] [address] WBC #/vol (Bld) 5.90 10 3/mcL Normal 4.50-10.80 [facility] ([place]) Comment on above: Order Comment: [facility] Location- [employer] Performed By: #### C BC, ADIFF, ANEU, PSA, TSH, CMP, GFR, BILAD, LIPID, A1C #### [place] [address] CMPon 11-26-2018 Albumin/Globulin mass ratio 1.2 {ratio} Normal 0.9-1.6 [facility] ([place]) Comment on above: Order Comment: [facility] Location- [employer] Performed By: #### C BC, ADIFF, ANEU, PSA, TSH, CMP, GFR, BILAD, LIPID, A1C #### [address] [address] ALP enzyme act/vol 86 U/L Normal 38-126 [facility] ([place]) Comment on above: Order Comment: [facility] Location- [employer] Performed By: #### C BC, ADIFF, ANEU, PSA, TSH, CMP, GFR, BILAD, LIPID, A1C #### [address] [address] ALT enzyme act/vol 39 U/L Normal 12-55 [facility] ([place]) Comment on above: Order Comment: [facility] Location- [employer] Performed By: #### C BC, ADIFF, ANEU, PSA, TSH, CMP, GFR, BILAD, LIPID, A1C #### [place] [address] Bili Total 1.1 mg/dL Normal 0.2-1.2 [facility] ([place]) Comment on above: Order Comment: [facility] Location- [employer] Performed By: #### C BC, ADIFF, ANEU, PSA, TSH, CMP, GFR, BILAD, LIPID, A1C #### [place] [address] Creatinine mass conc 0.84 mg/dL Normal 0.60-1.40 [facility] ([place]) Comment on above: Order Comment: [facility] Location- [employer] Performed By: #### C BC, ADIFF, ANEU, PSA, TSH, CMP, GFR, BILAD, LIPID, A1C #### [address] [address] Globulin mass conc (S) 3.6 G/dL Normal 1.5-3.8 [facility] ([place]) Comment on above: Order Comment: [facility] Location- [employer] Performed By: #### C BC, ADIFF, ANEU, PSA, TSH, CMP, GFR, BILAD, LIPID, A1C #### [place] [id number] Protein mass conc 8.0 G/dL Normal 6.0-8.5 [facility] ([place]) Comment on above: Order Comment: [facility] Location- [employer] Performed By: #### C BC, ADIFF, ANEU, PSA, TSH, CMP, GFR, BILAD, LIPID, A1C #### [address] [address] Urea nitrogen/Creatinine mass ratio 13.1 ratio Normal 10.0-22.0 [facility] ([place]) Comment on above: Order Comment: [facility] Location- [employer] Performed By: #### C BC, ADIFF, ANEU, PSA, TSH, CMP, GFR, BILAD, LIPID, A1C #### [address] [address] Albumin mass conc 4.4 G/dL Normal 3.2-4.8 [facility] ([place]) Comment on above: Order Comment: [facility] Location- [employer] Performed By: #### C BC, ADIFF, ANEU, PSA, TSH, CMP, GFR, BILAD, LIPID, A1C #### [address] [address] AST enzyme act/vol 29 U/L Normal 8-34 [facility] ([place]) Comment on above: Order Comment: [facility] Location- [employer] Performed By: #### C BC, ADIFF, ANEU, PSA, TSH, CMP, GFR, BILAD, LIPID, A1C #### [address] [address] Calcium mass conc 9.3 mg/dL Normal 8.4-10.1 [facility] ([place]) Comment on above: Order Comment: [facility] Location- [employer] Performed By: #### C BC, ADIFF, ANEU, PSA, TSH, CMP, GFR, BILAD, LIPID, A1C #### [address] [address] Chloride molar conc 104 mmol/L Normal 98-110 [facility] ([place]) Comment on above: Order Comment: [facility] Location- [employer] Performed By: #### C BC, ADIFF, ANEU, PSA, TSH, CMP, GFR, BILAD, LIPID, A1C #### [place] [id number] CO2 molar conc 30 mmol/L Normal 22-32 [facility] ([place]) Comment on above: Order Comment: [facility] Location- [employer] Performed By: #### C BC, ADIFF, ANEU, PSA, TSH, CMP, GFR, BILAD, LIPID, A1C #### [place] [address] Electrolyte Balance 4.0 mEq/L Normal 4.0-15.0 [facility] ([place]) Comment on above: Order Comment: [facility] Location- [employer] Performed By: #### C BC, ADIFF, ANEU, PSA, TSH, CMP, GFR, BILAD, LIPID, A1C #### [place] [address] Glucose mass conc 98 mg/dL Normal 82-115 [facility] ([place]) Comment on above: Order Comment: [facility] Location- [employer] Performed By: #### C BC, ADIFF, ANEU, PSA, TSH, CMP, GFR, BILAD, LIPID, A1C #### [place] [address] Potassium molar conc 5.1 mmol/L High 3.5-5.0 [facility] ([place]) Comment on above: Order Comment: [facility] Location- [employer] Performed By: #### C BC, ADIFF, ANEU, PSA, TSH, CMP, GFR, BILAD, LIPID, A1C #### [place] [address] Sodium molar conc 138 mmol/L Normal 136-145 [facility] ([place]) Comment on above: Order Comment: [facility] Location- [employer] Performed By: #### C BC, ADIFF, ANEU, PSA, TSH, CMP, GFR, BILAD, LIPID, A1C #### [address] [address] Urea nitrogen mass conc 11.0 mg/dL Normal 8.0-22.0 [facility] ([place]) Comment on above: Order Comment: [facility] Location- [employer] Performed By: #### C BC, ADIFF, ANEU, PSA, TSH, CMP, GFR, BILAD, LIPID, A1C #### [address] [address] LIPIDon 11-26-2018 Cholesterol in HDL mass conc 69 mg/dL High 40-59 [facility] ([place]) Comment on above: Order Comment: [facility] Result Comment: HDL Reference Interval: Less than 40 Low - high risk 60 or above Optimal/lowers risk Performed By: #### C BC, ADIFF, ANEU, PSA, TSH, CMP, GFR, BILAD, LIPID, A1C #### [address] [address] Cholesterol in LDL mass conc 63 mg/dL Normal 0-129 [facility] ([place]) Comment on above: [facility] Result Comment: LDL is a calculated result and requires a 12-hr fast. LDL Reference Interval: Less than 100 Optimal 100-129 Near or above optimal 130-159 Borderline high risk 160-189 High risk 190 and above Very high risk Performed By: #### C BC, ADIFF, ANEU, PSA, TSH, CMP, GFR, BILAD, LIPID, A1C #### [address] [address] Triglyceride mass conc 53 mg/dL Normal 3-149 [facility] ([place]) Comment on above: Order Comment: [facility] Result Comment: Trig lyceride Reference Interval: Less than 150 Normal 150-199 Borderline high risk 200-499 High risk 500 or higher Very high risk Performed By: #### C BC, ADIFF, ANEU, PSA, TSH, CMP, GFR, BILAD, LIPID, A1C #### [address] [address] Cholesterol mass conc 143 mg/dL Normal 50-199 [facility] ([place]) Comment on above: Order Comment: [facility] Result Comment: Chol esterol Reference Interval: Less than 200 Desirable 200-239 Borderline high risk 240 and above High risk Performed By: #### C BC, ADIFF, ANEU, PSA, TSH, CMP, GFR, BILAD, LIPID, A1C #### [facility] [address] [place] [address] PSAon 11-26-2018 Protein mass conc 1.91 ng/mL Normal 0.02-4.00 [facility] ([place]) Comment on above: Order Comment: [facility] [employer] Location- [employer] Performed By: #### C BC, ADIFF, ANEU, PSA, TSH, CMP, GFR, BILAD, LIPID, A1C #### [address] [address] TSHon 11-26-2018 Thyrotropin Qn 1.530 mcIU/mL Normal 0.360-3.740 [facility] ([place]) Comment on above: Order Comment: [place] [employer] Location- [employer] Result Comment: Dalila guy note as of 02/17/17 new pediatric reference intervals were added for this test. Performed By: #### C BC, ADIFF, ANEU, PSA, TSH, CMP, GFR, BILAD, LIPID, A1C #### [address] [address] Encounters Encounter Date Encounter Type Care Provider Facility Start: 06-08-2025 End: 06-08-2025 ambulatory [facility] [place] [place]: 11-04-2024 End: 11-04-[address] Berkley Schuster MD Work Phone: [facility] Work Phone: Start: 11-04-2024 End: 11-04-[address] Berkley Schuster MD -Laboratory, [place] Work Phone: Start: 11-04-2024 End: 11-04-2024 ambulatory Berkley Schuster Facility:[facility] Start: 02-06-2019 End: 02-07-2019 Patient encounter procedure BERKLEY SCHUSTER [facility] Procedures Date Procedure Procedure Detail Performing Clinician Start: 11-04-2024 X-ray of chest, PA a nd lateral views Dr. Berkley Schuster MD Work Phone: Payers Date Payer Category Payer Medicare [id number] 2024 Private Health Insurance [id number] 2024 Self-pay [id number] 1950 Unknown [id number] 1 Unknown [id number] Unknown [employer] [id number] Unknown [employer] [id number] Unknown [id number] 2 Unknown [id number] 2 Unknown [id number] 2 Social History Date Type Detail Facility Start: 03-03-2015 Tobacco smoking stat [facility] Never smoked tobacco (finding) [facility] Start: 11-08-2024 Sex Male (finding) [facility] Start: 1950 Sex Assigned At Male [facility] Radiology Diagnostic study note 11-04-2024 Note Date & Type Note Facility 11-04-2024 Radiology Diagnostic study note [facility] Services [address] [place], [place] [address] Chest PA and Lateral MR#: [id number] Acct: [id number] Name: MARY LOMAX Rep #: [id number] : 1950 M 74 From: Olivia Liu MD PCP: Dr. Berkley Schuster MD Status: REG CLI Study:Chest PA and Lateral Date of Exam: 11/04/24 Exam# [id number] Ordering Dr: Seven Schuster MD EXAM: XR Chest, 2 Views CLINICAL INDICATION: WHEEZING TECHNIQUE: Frontal and lateral views of the chest. COMPARISON: No relevant prior studies available. FINDINGS: LUNGS AND PLEURAL SPACES: Unremarkable. No consolidation. No pneumothorax. HEART: Unremarkable. No cardiomegaly. MEDIASTINUM: Unremarkable. Normal mediastinal contour. BONES/JOINTS: Unremarkable. No acute fracture. RAD/Chest PA and Lateral IMPRESSION: No acute cardiopulmonary process. Reading [facility] CC: Dr. Berkley Schuster MD ~ Account Services Analyst: Signed [facility] Evaluation note Note Date & Type Note Facility Evaluation note No assessment information availa ble [facility] Work Phone: Reason for referral (narrative) Note Date & Type Note Facility Reason for referral (narrative) No reason for referral information available [facility] Work Phone: Summary Purpose Family History No Family History Records FoundNo Family History Records FoundNo Family History Records Found Advance Directives No Advanced Directives Records Found Advance Directive Response Recorded Date/ Time Advance Directives No April 9:00am Hospital Course Note [facility] DISCHARGE SUMMARY NAME ACCOUNT SEX AGE ADMIT DISCHARGE PT MED. RECORD# NUMBER DATE DATE TYPE MARY LOMAX [id number] M 68 02/06/19 02/07/19 2 [address] ROOM: 305MO DATE OF : 1950 DICTATING PHYSICIAN: Kin Faustin ADMITTING DIAGNOSIS: 1. Costochondritis. 2. Atypical chest pain secondary to above. 3. Hypertension. HOSPITAL COURSE: The patient is a pleasant man who comes in with chest pain that was reproducible. However, he did have some concerning features so he was brought in. Telemetry monitoring was unremarkable. ECG was unremarkable. He underwent echocardiogram as he had some positional components to his pain. He had normal EF and good valvular function. He also underwent a nuclear medicine stress test which was negative for ischemia. Given this, we did recommend outpatient NSAIDs and felt that he could be discharged home. DISCHARGE INSTRUCTIONS/PLAN: 1. He is to follow up with primary care in 3 to 5 days. 2. He is to return to work as tolerated. 3. I recommende (more content not included)... Chief Complaint and Reason for Visit Chief Complaint Admit Date LABS AND XRAY- WHEEZING November 04, 2024 9:32am Additional Source Comments (unrecognized sect ion and content) No Status Records FoundNo Status Records FoundNo Status Records Found INFORMATION SOURCE (unrecogn ized section and content) DATE CREATED AUTHOR 11/27/2018 [facility] ([place]) DATE CREATED AUTHOR AUTHOR'S ORGANIZ ATION 04/04/2019 [facility] DATE CREATED AUTHOR AUTHOR'S ORGANIZ ATION 06/09/2025 [facility] Care Teams (unrecognized sec tion and content) Team Status: Active Member Role Status Dates Dr. Berkley Schuster MD Family Provider Active Dr. Berkley Schuster MD Primary Care Provider Active Team Status: Inactive Member Role Status Dates Dr. Berkley Schuster MD Primary Care Provider Active Start: November 04, 2024 End: November 04, 2024 Dr. Berkley Schuster MD Attending Provider Active St art: November 04, 2024 End: November 04, 2024 Dr. Berkley Schuster MD Referring Provider Active St art: November 04, 2024 End: November 04, 2024 Goals (unrecognized section and content) Goals may be documented in a n alternate section FOR RECORDS PERTAINING TO PATIENTS WHO ARE OR HAVE BEEN ENROLLED IN A CHEMICAL DEPENDENCY/SUBSTANCEABUSE PROGRAM, SOME INFORMATION MAY BE OMITTED. This clinical summary was aggregated from multiple sources. Caution should be exercised in using it in the provision of clinical care. This summary normalizes information from multiple sources, and as a consequence, information in this document may materially change the coding, format and clinical context of patient data. In addition, data may be omitted in some cases. CLINICAL DECISIONS SHOULD BE BASED ON THE PRIMARY CLINICAL RECORDS. [facility]. provides no warranty or guarantee of the accuracy or completeness of information in this document.
== END | disposition home or self-care (01) ==
LOC: PSN 10:27
PROVIDERS: PCP Family Medicine; Referring Provider Family Medicine; Visit Provider Family Medicine
DX: R05.3 Chronic cough (principal)
CPT/HCPCS: 94060; 94726; 94729

== ENCOUNTER → 2025-07-16 | Outpatient (CLI) | payer MEDICARE, SELFPAY ==
--- NOTE | 2025-07-16 14:30 | CT_ITS ---
PROCEDURE: CHEST WITHOUT CONTRAST 07/16/2025 REASON FOR EXAM: CHRONIC COUGH TECHNIQUE: Chest CT without contrast. Coronal and Sagittal reconstruction series were provided. One or more dose reduction techniques were used (e.g., Automated exposure control, adjustment of the mA and/or kV according to patient size, use of iterative reconstruction technique RADIATION DOSE SUMMARY: CTDlvol: 13.14 MGy DLP: 489.42 mGycm COMPARISON: 4.1.2024 FINDINGS: No suspicious-appearing soft tissue pulmonary nodule or mass. There is no focal infiltrate or consolidation. Bilateral apical reticulations and subpleural nodularity are seen likely sequelae of prior healed granulomatous infection. A few streaky opacities are present in the right lower lobe paravertebral region, which may reflect osteophyte-induced subsegmental atelectasis. Mild bilateral upper lobes centrilobular emphysema. There are no pleural effusions. No pneumothorax is seen. No mediastinal or hilar adenopathy is identified. The thyroid is unremarkable. The central airways are patent. The chest wall appears unremarkable. No axillary adenopathy is identified. The thoracic aorta demonstrates atheromatous calcification. The heart and pulmonary arteries are of normal size and configuration. There are coronary artery calcifications. No pericardial effusion is identified. No aggressive-appearing osseous lesions are identified. Mild degenerative changes are present in the spine. Right fifth rib anterior aspect healing fracture is seen. The included abdominal cuts show small left adrenal gland hypodense nodule likely adenoma and bilateral perinephric fat stranding CT/Chest without Contrast IMPRESSION: No acute abnormalities seen. Mild bilateral upper lobes centrilobular emphysema. Reading Location: [place] [id number]
== END | disposition home or self-care (01) ==
LOC: CT 14:28
PROVIDERS: PCP Family Medicine; Referring Provider Family Medicine; Visit Provider Family Medicine
DX: R05.3 Chronic cough (principal)
CPT/HCPCS: 71250